=== PATIENT | female | born 1970 ===

== ENCOUNTER 2017-01-26 06:43 | Day surgery (SDC) | payer BC ==
[~2017-01-26 06:43] MED LIST: RINGER'S SOLUTION,LACTATED 1,000 ML IV PRN; ceFAZolin SODIUM 1 GM VIAL IV PRN
[2017-01-26] MEDS ORDERED: RINGER'S SOLUTION,LACTATED 1,000 ML IV ONE ×2 (07:10→08:20)
[2017-01-26] MEDS ORDERED: BUPIVACAINE HCL/EPINEPHRINE 10 ML VIAL IJ ONE ×2 (08:00)
[2017-01-26] MEDS: ROPIVACAINE HCL/PF 40 MG in NORMAL SALINE 16 ML IJ PRN ×2 (08:12→08:22)
[2017-01-26] MEDS ORDERED: HYDROmorphone HCL 2 MG/ML VIAL IV PRN (08:47)
[2017-01-26] MEDS ORDERED: RINGER'S SOLUTION,LACTATED 1,000 ML IV PRN (08:48)
[2017-01-26] MEDS: oxyCODONE HCL/ACETAMINOPHEN 1 TAB TABLET PO PRN ×3 (09:00→09:50)
[2017-01-26] MEDS ORDERED: MORPHINE SULFATE 2 MG/ML DISP.SYRIN IV ONE (09:30)
--- NOTE | 2017-01-26 09:45 | OR ---
Operative Report - Dictated Report Narrative: Date: 01/26/2017 Physician: Craig Pedroza M.D. Consulting Application Engineer: Chintan Hanna PA-C Preoperative diagnosis: Right knee pain Postoperative diagnosis: Right Knee anterior medial plica, loose bodies, patella and lateral tibial arthrosis Procedure: Right knee arthroscopy with excision of anterior medial plica and removal of loose bodies Anesthesia: MAC Plus local Complications: None Estimated blood loss: Minimal Tourniquet time: None Specimens: None Retained implants: None Drains: None Indications: Mrs. Fischer Is a 46 year-old female who has been followed in my clinic with complaints of knee pain consistent with suspected intra-articular pathology. Physical exam and diagnostic imaging were consistent with these complaints and concern for intra-articular pathology. Conservative measures have failed including, but not limited to, passage of time, activity modification, medications, and injections. The risks, benefits, and alternatives were discussed in clinic. The risks being , bleeding, infection, blood clots, nerve, tendon, ligament, blood vessel injury, persistent pain, arthrosis, need for additional procedures, and persistent symptoms. Consent was obtained in the clinic. Procedure: After marking the correct extremity in the preoperative holding area, a timeout was performed in the operating room. IV antibiotics consisting of Ancef were administered prior to the procedure. A well-padded tourniquet was applied to the operative upper thigh. The leg was prepped and draped in a standard sterile fashion. 0.5% Marcaine with epinephrine was infused into the projected portal sites as well as the intra-articular space. A yaa incision was made for inferior lateral portal. A blunt trocar and cannula was introduced into the knee. The suprapatellar pouch revealed no pathology. The medial patella facet showed grade 3 arthrosis focal. The lateral patella facet showed grade 2 arthrosis. The trochlea showed no significant arthrosis. The medial gutter revealed a loose body as well as an anterior medial plica. The medial joint space was then entered utilizing a lateral post and valgus stress. A spinal needle was utilized for guidance into placement of an anterior medial portal. This was placed just superior to the medial meniscus ensuring that we could reach the posterior aspect of the medial joint space. A yaa incision was made in the site, and the probe was introduced to the knee. The medial joint space was examined, and the medial femoral condyle showed no significant arthrosis. The medial tibial plateau showedsignificant arthrosis. The medial meniscus had no tear. The notch was then examined, and the ACL was noted to be intact. The PCL was noted to be intact. The lateral joint space was then examined using a varus force in the figure 4 position. Lateral femoral condyle showed no significant arthrosis. Lateral tibial plateau showed grade 1 arthrosis. The lateral meniscus showed no tear. The lateral gutter showed an additional loose body. Having identified the surgical pathology, a shaver was utilized in order to debride the anterior medial plica as well as removed the loose bodies. Once it was felt that we adequately addressed the pathology, the knee was thoroughly irrigated. The fluid was evacuated ensuring that we have removed all meniscal, chondral, and any other loose bodies. A final evaluation of the joint showed no additional pathology. The fluid was then evacuated of the knee, and the trocar and camera were removed from the joint. The wounds were closed with interrupted nylon after placing 20 mL of 0.2% ropivacaine into the joint. Dressings consisting of Xeroform, 4 x 4, ABD, soft roll, and an Roe were applied. All sponge, needle, blade, and instrument counts were correct prior to closing the wounds. The patient was awoken and transferred to the postanesthesia care unit in stable condition.
[2017-01-26 13:56] VITALS: BP 122/66
== END 2017-01-26 06:44 | disposition home or self-care (01) ==
LOC: AMB 06:43
PROVIDERS: ATTEND Orthopaedic Surgery
PROC: 0SBC4ZZ Excision of Right Knee Joint, Percutaneous Endoscopic Approach (ICD-10-PCS; principal; 2017-01-26 08:00)
DX: M17.11 Unilateral primary osteoarthritis, right knee (principal); M67.51 Plica syndrome, right knee; F32.9 Major depressive disorder, single episode, unspecified; F41.9 Anxiety disorder, unspecified; F17.200 Nicotine dependence, unspecified, uncomplicated; Z68.25 Body mass index [BMI] 25.0-25.9, adult